=== PATIENT | male | born 1945 | race Two or more races ===

== ENCOUNTER 2020-11-30 13:47 | Inpatient (IN) | payer SELFPAY ==
[2020-11-30 13:53] VITALS: BMI 19.9
[2020-11-30] MEDS ORDERED: ACETAMINOPHEN 1000 MG/100 ML VIAL (NON FORMULARY) IVPB ONE (14:02)
[2020-11-30] MEDS ORDERED: METOCLOPRAMIDE HCL INJECTION 10 MG/2 ML VIAL IVPUSH ONE (14:02)
[2020-11-30] MEDS ORDERED: ACETAMINOPHEN INJECTION 100 ML IVPB ONE (14:11)
[2020-11-30] MEDS ORDERED: METOCLOPRAMIDE HCL INJECTION 10 MG/2 ML VIAL ONE (14:11)
[2020-11-30] MEDS ORDERED: LABETALOL HCL 5 MG/1 ML (100MG/20 ML VIAL) IVPUSH ONE (14:37)
[2020-11-30] MEDS ORDERED: LABETALOL HCL 5 MG/1 ML (100MG/20 ML VIAL) ONE (14:43)
[2020-11-30 14:48] LABS: WHITE BLOOD COUNT 6.8 K/mm3 (4.0-10.8)
[2020-11-30 14:51] LABS: EOS % 1.1 % (0-4.5); HEMOGLOBIN 14.3 GM/dl (11.7-16.9); LYMPH % 15.9 % (8-40); MCH 30.2 pg (25.7-33.7); MCHC 33.3 g/dl (32.0-35.9); MEAN CELL VOLUME 90.6 fl (80-96); MEAN PLT VOLUME 9.7 fl (7.5-11.1); MONO % 6.9 % (3.8-10.2); NEUT % 75.1 % (42.8-82.8); PLATELET COUNT 205 K/MM3 (134-434); RBC 4.75 M/mm3 (4.00-5.60); RDW 13.4 % (11.9-15.9)
[2020-11-30 14:59] LABS: ACTIVATED PTT 27.7 SECONDS (25.2-36.5)
[2020-11-30 15:03] LABS: ALBUMIN 3.9 g/dl (3.4-5.0); BILIRUBIN,TOTAL 0.6 mg/dl (0.2-1); CALCIUM 9.6 mg/dl (8.5-10); CREATININE 1.5 mg/dl (0.55-1.3); INR 1.03 (0.82-1.09); MAGNESIUM 1.9 mg/dL (1.8-2.4); PROTHROMBIN TIME (PATIENT) 11.5 SEC (10.2-13.0); TOT PROT 6.9 g/dl (6.4-8.2)
[2020-11-30] MEDS ORDERED: ASPIRIN 81 MG CHEWABLE TABLETS PO ONE (16:44)
[2020-11-30] MEDS ORDERED: ATORVASTATIN CA 80 MG TABLET (FP) PO ONE (16:44)
[2020-11-30] MEDS ORDERED: ATORVASTATIN CA 80 MG TABLET (FP) ONE (16:51)
[2020-11-30] MEDS ORDERED: ASPIRIN 81 MG CHEWABLE TABLETS ONE (16:51)
[2020-11-30 17:20] LABS: CHOLESTEROL 276 mg/dl (50-200); TRIGLYCERIDES 271 mg/dl (0-150)
[2020-11-30 17:37] LABS: HDL CHOLESTEROL 37 mg/dl (40-60); LDL CHOLESTEROL (ONLY DFH) 185 mg/dl (5-100)
[2020-12-01 07:58] LABS: BASO % 0.5 % (0-2.0); EOS % 2.1 % (0-4.5); HEMATOCRIT 39.3 % (35.4-49); HEMOGLOBIN 12.8 GM/dl (11.7-16.9); MCH 29.5 pg (25.7-33.7); MCHC 32.5 g/dl (32.0-35.9); MEAN CELL VOLUME 90.7 fl (80-96); MEAN PLT VOLUME 9.6 fl (7.5-11.1); MONO % 9.5 % (3.8-10.2); NEUT % 71.9 % (42.8-82.8); PLATELET COUNT 186 K/MM3 (134-434); RBC 4.33 M/mm3 (4.00-5.60); RDW 13.3 % (11.9-15.9); WHITE BLOOD COUNT 6.2 K/mm3 (4.0-10.8)
[2020-12-01 08:11] LABS: ALBUMIN 3.3 g/dl (3.4-5.0); BILIRUBIN,TOTAL 0.7 mg/dl (0.2-1); CALCIUM 9.1 mg/dl (8.5-10); CREATININE 1.5 mg/dl (0.55-1.3); MAGNESIUM 1.7 mg/dL (1.8-2.4); TOT PROT 5.8 g/dl (6.4-8.2)
[2020-12-01] MEDS: ASPIRIN 81 MG CHEWABLE TABLETS PO SCH (09:56)
[2020-12-01] MEDS: CLOPIDOGREL BISULFATE 75 MG TABLET (FP) PO SCH (15:00)
[2020-12-01] MEDS: ATORVASTATIN CA 40 MG TABLET (FP) PO SCH (21:18)
[2020-12-01] MEDS ORDERED: ATENOLOL 50 MG TABLET (FP) PO ONE (22:58)
[2020-12-02] MEDS ORDERED: hydrALAZINE HCL 10 MG TABLET PO ONE (08:30)
[2020-12-02] MEDS: ATENOLOL 50 MG TABLET (FP) PO SCH ×2 (09:45→21:46)
[2020-12-02] MEDS: ASPIRIN 81 MG CHEWABLE TABLETS PO SCH (09:45)
[2020-12-02] MEDS: CLOPIDOGREL BISULFATE 75 MG TABLET (FP) PO SCH (09:45)
[2020-12-02] MEDS ORDERED: PATIENT'S OWN MEDICATION (NON-FORMULARY) (Bisoprolol Fumarate [Bisoprolol Fumarate] 5 MG T PO SCH (10:00)
[2020-12-02] MEDS: hydrALAZINE HCL 10 MG TABLET PO SCH (21:46)
[2020-12-02] MEDS: ATORVASTATIN CA 40 MG TABLET (FP) PO SCH (21:46)
[2020-12-03] MEDS: hydrALAZINE HCL 10 MG TABLET PO SCH (06:41)
[2020-12-03] MEDS: ATENOLOL 50 MG TABLET (FP) PO SCH (06:41)
[2020-12-03] MEDS ORDERED: hydrALAZINE HCL 10 MG TABLET PO SCH ×2 (08:30→14:00)
[2020-12-03] MEDS: ASPIRIN 81 MG CHEWABLE TABLETS PO SCH (09:36)
[2020-12-03] MEDS: CLOPIDOGREL BISULFATE 75 MG TABLET (FP) PO SCH (09:37)
[2020-12-03 11:19] LABS: CALCIUM 9.5 mg/dl (8.5-10); CREATININE 1.5 mg/dl (0.55-1.3); MAGNESIUM 1.7 mg/dL (1.8-2.4)
[2020-12-03] MEDS ORDERED: MAGNESIUM SULF 50% (8.12 MEQ/2 ML-1 GM VIAL) IVPB ONE (11:31)
[2020-12-03] MEDS ORDERED: MAGNESIUM SULFATE IN WATER 2 GM/50 ML IVPB IVPB ONE (11:45)
[2020-12-03] MEDS: HEPARIN NA (PORCINE) 5,000 UNITS/ML 1ML VIAL SQ SCH ×2 (15:58→21:28)
[2020-12-03] MEDS: amLODIPine BESYLATE 5 MG TABLET (FP) PO SCH (15:58)
[2020-12-03] MEDS: ATORVASTATIN CA 40 MG TABLET (FP) PO SCH (21:28)
[2020-12-04] MEDS ORDERED: amLODIPine BESYLATE 5 MG TABLET (FP) PO ONE (00:13)
[2020-12-04] MEDS: HEPARIN NA (PORCINE) 5,000 UNITS/ML 1ML VIAL SQ SCH (06:05)
[2020-12-04] MEDS ORDERED: PRESCRIPTION PAD 1 EACH EACH NR ONE (09:52)
[2020-12-04 10:41] VITALS: BP 167/84; PULSE 68; TEMP 97.6
[2020-12-04] MEDS: amLODIPine BESYLATE 5 MG TABLET (FP) PO SCH (10:42)
[2020-12-04] MEDS: CLOPIDOGREL BISULFATE 75 MG TABLET (FP) PO SCH (10:42)
[2020-12-04] MEDS: ASPIRIN 81 MG CHEWABLE TABLETS PO SCH (10:42)
== END 2020-12-04 11:32 | disposition home or self-care (01) | DRG 45 ==
LOC: FER 13:47 → FM/S 20:14
PROVIDERS: ADMIT Internal Medicine; ATTEND Nurse Practitioner Acute Care
DX: I63.9 Cerebral infarction, unspecified (principal); N17.9 Acute kidney failure, unspecified; G91.2 (Idiopathic) normal pressure hydrocephalus; I10 Essential (primary) hypertension; E78.5 Hyperlipidemia, unspecified; R42 Dizziness and giddiness; R26.81 Unsteadiness on feet; Z20.822 Contact with and (suspected) exposure to COVID-19
CPT/HCPCS: 36415; 70450-TC; 70551-TC; 71045-TC-FY; 80048; 80053; 80061; 81003; 81015; 82550; 83735; 84484; 85025; 85610; 85730; 86850; 86900; 86901; 93005; 93880-TC; 97116-GP; 97162-GP; 99285-25; C9803; J0131; J1644; U0003; U0005